=== PATIENT | female | born 1990 | race Hispanic/Latino ===

== ENCOUNTER 2019-08-12 05:48 | Day surgery (SDC) | payer OTHER ==
[~2019-08-12 05:48] MED LIST: LACTATED RINGERS 1,000 ML IV SCH; WATER FOR IRRIG STERILE 1,500 ML BOTTLE IR ONE; WATER FOR IRRIG STERILE 2000 ML IR ONE
[2019-08-12] MEDS ORDERED: BACTERIOSTATIC SODIUM CHLORIDE 0.9% 30 ML VIAL INFILTRATI ONE (06:25)
[2019-08-12] MEDS: MIDAZOLAM 2 MG/2 ML INJ IV NR ×2 (07:25→07:36)
--- NOTE | 2019-08-12 07:25 | Anesthesia Day of Surgery ---
Anesthesia Day of Surgery - Day of Surgery Patient Examined: Yes Patient H&P Reviewed: Yes Patient is NPO: Yes
--- NOTE | 2019-08-12 07:25 | Anesthesia Consultation ---
Anesthesia Consult and Med Hx Date of service: 08/12/19 - Airway Anesthetic Teeth Evaluation: Good ROM Head & Neck: Adequate Mental/Hyoid Distance: Adequate Mallampati Class: Class I Intubation Access Assessment: Good - Pulmonary Exam CTA: Yes - Cardiac Exam Cardiac Exam: RRR - Pre-Operative Health Status ASA Pre-Surgery Classification: ASA2 Proposed Anesthetic Plan: General - Pulmonary Hx Smoking: Yes (occasional smoker <1 pack per week) Hx Respiratory Symptoms: No Hx Sleep Apnea: No (BRAULIO PRE SCREEN NEGATIVE) - Cardiovascular System Hx Hypertension: No Hx Heart Attack/AMI: No Hx Percutaneous Transluminal Coronary Angioplasty (PTCA): No Hx Valvular Heart Disease: Yes (MVP) - Central Nervous System CVA: No Hx Back Pain: Yes Hx Psychiatric Problems: Yes (anxiety/depression) - Gastrointestinal Hx Gastroesophageal Reflux Disease: No (hx ulcerative colitis) - Endocrine Hx Renal Disease: No Hx Liver Disease: No Hx Insulin Dependent Diabetes: No Hx Non-Insulin Dependent Diabetes: No Hx Thyroid Disease: No - Other Systems Hx Obesity: No - Additional Comments Anesthesia Medical History Comments: Hx PONV which has been helped with prophylactic phenergan. Declines scopolamine patch.
[2019-08-12] MEDS ORDERED: GLYCOPYRROLATE 0.4 MG/2 ML INJ ONE (07:42)
[2019-08-12] MEDS ORDERED: ONDANSETRON 4 MG/2 ML INJ ONE (07:42)
[2019-08-12] MEDS ORDERED: PHENYLEPHRINE/NS 1,000 MCG/10 ML SYRINGE (OR USE) IV ONE (07:42)
[2019-08-12] MEDS ORDERED: fentaNYL 100 MCG/2 ML INJ ONE (07:42)
[2019-08-12] MEDS ORDERED: propofoL 200 MG/20 ML VIAL IV ONE (07:42)
[2019-08-12] MEDS ORDERED: KETAMINE/STERILE WATER 50 MG/ML SYRINGE ONE (07:42)
[2019-08-12] MEDS ORDERED: LIDOCAINE MPF (2%) 20 MG/1 ML VIAL 5 ML ONE (07:42)
[2019-08-12] MEDS ORDERED: ceFAZolin/STERILE WATER 2 GM/20 ML SYRINGE IV NR (08:00)
[2019-08-12] MEDS ORDERED: WATER FOR IRRIG STERILE 1,500 ML BOTTLE IR ONE (08:09)
[2019-08-12] MEDS ORDERED: WATER FOR IRRIG STERILE 2000 ML IR ONE (08:09)
--- NOTE | 2019-08-12 08:59 | Post Operative Note ---
Date of procedure: 08/12/19 Pre-op diagnosis: ic pain Post-op diagnosis: same Findings: glomerulations Procedure: cysto hydro Anesthesia: JIE Surgeon: HEBERT VAZQUEZ Estimated blood loss: none Pathology: none Condition: stable Disposition: PACU
--- NOTE | 2019-08-12 09:00 | Discharge Summary ---
Short Stay Discharge Plan Activity: other (no straining ) Weight Bearing Status: Full Weight Bearing Diet: low fat, low cholesterol, low salt Special Instructions: other (inc fluids ) Follow up with: BASIA MERRILL MD [Primary Care Provider] - 7 Days HEBERT VAZQUEZ MD [Staff Physician] - 7 Days
--- NOTE | 2019-08-12 09:10 | Fluoroscopy Report ---
Bilateral retrograde pyelography INDICATION: UTI FINDINGS: 6 views obtained in the cystoscopy suite show selective cannulation and injection of both u reters. No stricture or filling defect is seen. There is no hydronephrosis or hydroureter. Post drain age view is unremarkable with no significant retention. No significant abnormality. IMPRESSION: Negative retrograde pyelography Total fluoroscopic time was 15 seconds. Signer Name: Benny Vicente MD Signed: 08/12/2019 9:06 AM Workstation Name: [id number]
[2019-08-12] MEDS: fentaNYL 100 MCG/2 ML INJ IV PRN ×2 (09:43→09:56)
--- NOTE | 2019-08-12 09:51 | Operative Report ---
PREOPERATIVE DIAGNOSIS: Interstitial cystitis with severe pain. POSTOPERATIVE DIAGNOSIS: Interstitial cystitis with severe pain. PROCEDURE: Cystoscopy, hydrodistention, retrograde. SURGEON: Aram Ramos MD ANESTHESIA: General. FINDINGS: This is a woman with pelvic pain. She wanted some heavy medication and she has been suffering for quite some time. She now presents for cystoscopy, hydrodistention. DESCRIPTION OF PROCEDURE: The patient was brought to the operating room and placed on the operating table. Following induction of anesthesia, placed in lithotomy position, prepped and draped in usual sterile fashion. Cystourethroscopy showed a normal urethra. The bladder epithelium was normal. Retrograde showed good filling and good drainage. Bladder was well visualized. There were no lesions. Hydrodistention was carried out twice with 700 mL with clearly some beginning of some cracking and some glomerulations. It was not diffuse, mostly towards the base and the left side. The patient tolerated the procedure well. No significant bleeding, brought to recovery in stable condition. JOB# [id number] WALLY/JOLEEN
--- NOTE | 2019-08-12 10:44 | Post Anesthesia Evaluation ---
- Post Anesthesia Evaluation Patient Participated: Yes Airway Patent: Yes Stable Respiratory Function: Yes Nausea/Vomiting: No Temp > 96.8F: Yes Pain Manageable: Yes Adequeate Hydration: Yes Anesthesia Complications: No
[2019-08-13 13:11] VITALS: BP 98/50
== END 2019-08-12 05:49 | disposition home or self-care (01) ==
LOC: EDSEX 05:48 → OR 05:48
PROVIDERS: ATTEND Urology
DX: N30.10 Interstitial cystitis (chronic) without hematuria (principal); G43.909 Migraine, unspecified, not intractable, without status migrainosus; F31.9 Bipolar disorder, unspecified; F41.9 Anxiety disorder, unspecified; D64.9 Anemia, unspecified; F17.210 Nicotine dependence, cigarettes, uncomplicated; Z88.8 Allergy status to other drugs, medicaments and biological substances; Z79.899 Other long term (current) drug therapy; Z88.5 Allergy status to narcotic agent; Z98.51 Tubal ligation status; Z87.440 Personal history of urinary (tract) infections; Z98.890 Other specified postprocedural states
CPT/HCPCS: 52260; 74420; A4217; C1758; J2250; J2370; J2405; J2704; J3010; J7120; Q9967